=== PATIENT | male | born 1975 | race Hispanic/Latino ===

== ENCOUNTER 2017-06-06 20:50 | Emergency (ER) | payer MEDICAID ==
[2017-06-06] MEDS ORDERED: BOOSTRIX IM ONE (21:33)
[2017-06-06] MEDS ORDERED: VITAMIN B-1 100 MG, FOLVITE 1 MG, INFUVITE 10 ML in NACL 0.9% 1000 ML 1,000 ML IV ONE (21:33)
[2017-06-06 21:46] LABS: Basophils % (Auto) 0.4 % (0.0-1.8); Eosinophils # (Auto) 0.2 K/mm3 (0.0-0.4); Eosinophils % (Auto) 2.7 % (0.0-4.3); Hemoglobin 12.8 gm/dl (11.8-15.2); Lymphocytes # (Auto) 2.2 K/mm3 (1.2-5.4); Lymphocytes % (Auto) 34.5 % (13.4-35.0); Mean Corpuscular HGB Conc 32 % (32-34); Mean Corpuscular Volume 77 fl (84-94); Monocytes # (Auto) 0.2 K/mm3 (0.0-0.8); Monocytes % (Auto) 3.7 % (0.0-7.3); Platelet Count 100 K/mm3 (140-440); Red Blood Count 5.21 M/mm3 (3.65-5.03); Red Cell Distribution Width 18.9 % (13.2-15.2)
[2017-06-06 21:47] LABS: Mean Corpuscular Hemoglobin 25 pg (28-32)
[2017-06-06 22:05] LABS: BUN/Creatinine Ratio 12; Blood Urea Nitrogen 6 mg/dL (9-20); Calcium 9.4 mg/dL (8.4-10.2); Hemolysis Index 8
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
[2017-06-06 22:28] LABS: Bacteria,Urine 1+ /HPF (Negative); Bilirubin,Urine NEG (Negative); Blood,Urine MOD (Negative); Color,Urine Straw (Yellow); Nitrite,Urine NEG (Negative); Protein,Urine <15 mg/dL mg/dL (Negative); RBC,Urine < 1.0 /HPF (0.0-6.0); Urobilinogen,Urine < 2.0 mg/dL (<2.0)
[2017-06-06 22:33] LABS: WBC,Urine < 1.0 /HPF (0.0-6.0)
[2017-06-06 22:37] LABS: Amphetamine Screen,Urine PRESUMPTIVE NEGATIVE; Benzodiazepines Screen,Urine PRESUMPTIVE NEGATIVE; Cannabinoid Screen,Urine PRESUMPTIVE NEGATIVE; Cocaine Screen,Urine PRESUMPTIVE NEGATIVE; Methadone Screen,Urine PRESUMPTIVE NEGATIVE; Opiate Screen,Urine PRESUMPTIVE NEGATIVE
--- NOTE | 2017-06-06 22:38 | Cat Scan Report ---
FINAL REPORT PROCEDURE: CT head without contrast. TECHNIQUE: Computerized tomography of the head was performed without contrast material. HISTORY: Patient fell, head injury, ethanol intoxication. COMPARISON: No prior studies are available for comparison. FINDINGS: The ventricles are normal in size. The benton matter and white matter appear normal. There are no mass lesions. There is no intracranial hemorrhage. There are no signs of acute infarction. The calvarium appears intact. The mastoid air cells are clear. There is extensive mucosal thickening in the left frontal sinus, the left anterior and middle ethmoid air cells and the right posterior ethmoid sinus. There is a tiny mucous retention cyst in the left maxillary sinus. IMPRESSION: Normal study of the brain. Chronic sinusitis as described.
--- NOTE | 2017-06-06 22:49 | Cat Scan Report ---
FINAL REPORT PROCEDURE: CT facial bones without contrast. TECHNIQUE: Computerized tomography of the facial bones and soft tissues with axial and coronal sections performed from the cranial aspect of the frontal sinuses to the caudal portion of the mandible without contrast material. HISTORY: Patient fell, facial injury. COMPARISON: No prior studies are available for comparison. FINDINGS: The facial bones appear intact. There are no definite fractures. There is a prominent right nasal bones suture, however I do not think this represents an acute fracture. Clinical correlation is suggested. The orbital contents appear normal. There are no blowout type injuries. There is mucosal thickening in the left frontal sinus, the left anterior and middle ethmoid air cells on the right posterior ethmoid air cell. The facial soft tissues are unremarkable. IMPRESSION: No definite facial fracture identified. Probable widened nasal suture.
--- NOTE | 2017-06-06 22:52 | Cat Scan Report ---
FINAL REPORT PROCEDURE: CT cervical spine without contrast. TECHNIQUE: Computerized tomography of the cervical spine was performed from the skull base to T1 without contrast material. HISTORY: Patient fell, ethanol intoxication, neck pain. COMPARISON: No prior studies are available for comparison. FINDINGS: The cervical vertebrae have normal height and alignment. There are no fractures. There is no subluxation. There is mild narrowing of the disc spaces at C4-5 and C5-6. The spinal canal appears adequately patent. There is osteoarthritis involving several of the facet joints. There is mild osteophytic narrowing of the right neural foramen at C3-4 and the left neural foramen at C4-5. The prevertebral soft tissues have normal thickness. IMPRESSION: Degenerative disease as described. No evidence of acute cervical spine injury.
[2017-06-07] MEDS ORDERED: NACL 0.9% 1000 ML 1,000 ML IV ONE (07:02)
[2017-06-07] MEDS ORDERED: LIBRIUM PO PRN ×2 (09:18)
[2017-06-07] MEDS ORDERED: ATIVAN IV ONE (10:27)
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
[2017-06-07 16:21] VITALS: BP 148/94
== END 2017-06-07 16:07 | disposition home or self-care (01) ==
LOC: ED 20:50
DX: S00.81XA Abrasion of other part of head, initial encounter (principal); F10.129 Alcohol abuse with intoxication, unspecified; Z88.1 Allergy status to other antibiotic agents; Z87.891 Personal history of nicotine dependence; W17.89XA Other fall from one level to another, initial encounter; Y93.89 Activity, other specified; Y92.89 Other specified places as the place of occurrence of the external cause; Y99.8 Other external cause status
CPT/HCPCS: 36415; 70450; 70486; 72125; 80048; 80307; 81001; 83735; 85025; 96361; 96365; 96375; 99283; G0480; J2060; J3411; J7030; 80320